=== PATIENT | male | born 1950 | race African-American/Black ===

== ENCOUNTER 2016-10-17 08:21 | Emergency (ER) | payer OTHER ==
[~2016-10-17] VITALS: Ht 180.3 cm; Wt 77.1 kg
--- NOTE | ~2016-10-17 | EKG ---
[place] [address] [facility] [place] [address] ELECTROCARDIOGRAM REPORT Name: MARINAMIKEY [facility] Daniel#: [id number] Admission: 10/17/16 Attend Phys: Discharge: 10/17/16 Date of : 54 Report #: [id number] THIS REPORT FOR: //name// [facility] ED Test Date: 2016-10-17 Test Time: 08:30:44 Pat Name: MIKEY GRAY Department: Room: Gender: M E [employer]: ALICE : 1950 Requested By: Mars Gunter Order Number: [id number] MD: Charles Fallon Measurements Intervals [place] Rate: 61 P: 43 IN: 240 QRS: -27 QRSD: 117 T: 140 QT: 452 QTc: 456 Interpretive Statements Sinus rhythm Prolonged IN interval Left atrial enlargement Incomplete left bundle branch block LVH with secondary repolarization abnormality vs lateral ischemia Electronically Signed On 10-17-2016 12:15:19 CDT by Charles Fallon [email or web address] <ELECTRONICALLY SIGNED> By: Charles Fallon MD 10/17/16 1215 [id number] 9 Charles Fallon MD /IGGY
[~2016-10-17 08:21] MED LIST: BUTALB-APAP-CA1 EACH PO; CARVEDILOL12.5 MG PO; CLONIDINE0.1 PO; HYDRALAZINE 2525 MG PO; LANTUS; NAPROSYN500 MG PO; NORCO 5-325 TA1 EACH PO; PERCOCET 5-3251 EACH PO; POTASSIUM20 PO; TRAMADOL 50 MG50 MG PO; VICODIN 5-5001 EACH PO; XANAX1 MG PO; ZESTRIL20 MG PO
[2016-10-17 09:24] LABS: ABSOLUTE NEUTROPHILS 3.9 thou/uL (1.4-8.2); BASOPHILS 0.6 % (0.0-2.0); EOSINOPHILS 2.1 % (0.0-3.0); HEMATOCRIT 34.9 % (42.0-52.0); HEMOGLOBIN 11.6 gm/dL (14.0-18.0); LYMPHOCYTES 17.4 % (24.0-44.0); MCH 31.3 pg (26.0-34.0); MCHC 33.4 g/dL (28.0-37.0); MCV 93.8 fL (80.0-100.0); MONOCYTES 11.3 % (1.0-8.0); PLATELET COUNT 169 thou/uL (150-400); POLYS 68.6 % (36.0-66.0); RBC 3.72 mil/uL (4.50-6.00); RDW 14.8 % (10.5-14.5); WBC 5.6 thou/uL (4.0-11.0)
[2016-10-17 09:25] LABS: MANUAL DIFF NO
[2016-10-17 09:36] LABS: APTT 28.5 Seconds (24.5-32.8); PROTIME 10.7 Seconds (9.3-11.4)
[2016-10-17 09:51] LABS: ALBUMIN 3.5 g/dL (3.4-5.0); ALKALINE PHOSPHATASE 98 U/L (46-116); ANION GAP 9 mmol/L (7-16); BUN 18 mg/dL (7-18); CALCIUM 8.1 mg/dL (8.5-10.1); CHLORIDE 105 mmol/L (98-107); CK-MB MASS 0.9 ng/mL (<0.5-3.6); CO2 25 mmol/L (21-32); CREATININE 1.8 mg/dL (0.7-1.3); GLUCOSE 149 mg/dL (74-106); MAGNESIUM 1.6 mg/dL (1.8-2.4); NT-PRO BRAIN NAT PEPTIDE 493 pg/mL (<300); SGOT 12 U/L (15-37); SGPT 11 U/L (30-65); SODIUM 139 mmol/L (136-145); TOTAL BILIRUBIN 0.4 mg/dL (<0.1-1.0); TOTAL PROTEIN 7.1 g/dL (6.4-8.2); TROPONIN-I < 0.04 ng/mL (<0.04-0.07)
[2016-10-17 09:57] LABS: POTASSIUM 2.7 mmol/L (3.5-5.1)
[2016-10-17] MEDS ORDERED: CLONIDINE0.1 PO (10:04)
[2016-10-17] MEDS ORDERED: ATIVAN0.5 MG PO (10:04)
[2016-10-17] MEDS ORDERED: POTASSIUM20 PO (10:06)
[2016-10-17 10:37] VITALS: BP 163/94
== END 2016-10-17 10:38 | disposition home or self-care (01) ==
LOC: ER 08:21
PROVIDERS: Emergency Medicine
DX: I11.0 Hypertensive heart disease with heart failure (principal); I50.9 Heart failure, unspecified; F41.9 Anxiety disorder, unspecified; E87.6 Hypokalemia; E83.42 Hypomagnesemia; R51 Headache; F17.210 Nicotine dependence, cigarettes, uncomplicated